=== PATIENT | male | born 1995 | race American Indian/Alaskan Native ===

== ENCOUNTER 2018-03-08 18:03 | Emergency (ER) | payer SELFPAY ==
[2018-03-08 18:16] VITALS: BP 148/77
[2018-03-08] MEDS ORDERED: NACL 0.9% 1000 ML 1,000 ML IV ONE (18:17)
[2018-03-08] MEDS ORDERED: ZOFRAN IV ONE (18:17)
[2018-03-08] MEDS ORDERED: MORPHINE IV ONE (18:17)
--- NOTE | 2018-03-08 18:30 | Emergency Department Report ---
ED General Adult HPI - General Chief complaint: Fall Stated complaint: UNRESPONSIVE Time Seen by Provider: 03/08/18 18:10 Source: patient, family Mode of arrival: Stretcher Limitations: Altered Mental Status - History of Present Illness Initial comments: Patient presents to the emergency department via private vehicle for fall. The patient was on the ladder changing a light bulb when he fell off the ladder. Per the patient's guest he fell approximately 10-12 feet. The patient fell onto a carpeted floor. Patient did have loss of consciousness for approximately 3-5 minutes per the guest. Abdomen the patient woke up she drove the patient hospital for which took approximately 30 minutes. Patient complains of a headache, neck pain, left-sided chest wall pain, abdominal pain, and left forearm pain. -: Sudden Location: head, chest, abdomen, upper extremity Radiation: non-radiation Severity scale (0 -10): 9 Quality: sharp Consistency: constant Improves with: none Worsens with: movement Associated Symptoms: denies other symptoms Treatments Prior to Arrival: none - Related Data Previous Rx's Medication Instructions Recorded Last Taken Type Acetaminophen/Codeine [Tylenol 1 tab PO Q6H PRN #20 tab 03/08/18 Unknown Rx /Codeine # 3 tab] Ibuprofen [Motrin] 800 mg PO Q8HR PRN #30 tablet 03/08/18 Unknown Rx Allergies Allergy/AdvReac Type Severity Reaction Status Date / Time No Known Allergies Allergy Unverified 03/08/18 18:09 ED Review of Systems ROS: Stated complaint: UNRESPONSIVE Other details as noted in HPI Constitutional: denies: chills, fever Eyes: denies: eye pain, eye discharge, vision change ENT: denies: ear pain, throat pain Respiratory: denies: cough, shortness of breath, wheezing Cardiovascular: chest pain. denies: palpitations Endocrine: no symptoms reported Gastrointestinal: abdominal pain. denies: nausea, diarrhea Genitourinary: denies: urgency, dysuria Musculoskeletal: denies: back pain, joint swelling, arthralgia Skin: denies: rash, lesions Neurological: denies: headache, weakness, paresthesias Psychiatric: denies: anxiety, depression Hematological/Lymphatic: denies: easy bleeding, easy bruising ED Past Medical Hx - Past Medical History Previous Medical History?: No - Surgical History Past Surgical History?: Yes Additional Surgical History: left achillies surgery - Social History Smoking Status: Never Smoker Substance Use Type: None - Medications Home Medications: Home Medications Medication Instructions Recorded Confirmed Last Taken Type Acetaminophen/Codeine [Tylenol 1 tab PO Q6H PRN #20 tab 03/08/18 Unknown Rx /Codeine # 3 tab] Ibuprofen [Motrin] 800 mg PO Q8HR PRN #30 tablet 03/08/18 Unknown Rx ED Physical Exam - General Limitations: Altered Mental Status General appearance: alert, in no apparent distress - Head Head exam: Present: normocephalic, other (bruising to forehead) - Eye Eye exam: Present: normal appearance, PERRL, EOMI - ENT ENT exam: Present: mucous membranes moist - Neck Neck exam: Present: other (tender to palpation of midline C-spine) - Respiratory Respiratory exam: Present: normal lung sounds bilaterally, chest wall tenderness (TTP left lateral chest wall). Absent: respiratory distress, wheezes, rales - Cardiovascular Cardiovascular Exam: Present: regular rate, normal rhythm. Absent: systolic murmur, diastolic murmur, rubs, gallop - GI/Abdominal GI/Abdominal exam: Present: soft, tenderness (tenderness to palpation diffusely throughout the abdomen), normal bowel sounds. Absent: distended - Rectal Rectal exam: Present: deferred - Extremities Exam Extremities exam: Present: other (tenderness to palpation of the humeral head left forearm as well as the left radius proximally) - Back Exam Back exam: Present: normal inspection - Neurological Exam Neurological exam: Present: alert, oriented X3, CN II-XII intact. Absent: motor sensory deficit - Psychiatric Psychiatric exam: Present: normal affect, normal mood - Skin Skin exam: Present: warm, dry, intact, normal color. Absent: rash ED Course Vital Signs 03/08/18 18:10 Temperature 98.0 F Pulse Rate 85 Respiratory 16 Rate Blood Pressure 148/77 O2 Sat by Pulse 99 Oximetry ED Medical Decision Making - Lab Data Result diagrams: 03/08/18 19:05 03/08/18 19:05 - Radiology Data Radiology results: report reviewed Referring Physician: LARON TROY Patient Name: ANTWAN GERARD Date of : 1995 Sex: Male Report Date: 2018-03-08 Report Status: Finalized [facility] [address] [place] [address] XRay Report Signed Patient: ANTWAN GERARD MR#: [id number] : 1995 Acct:[id number] Age/Sex: 22 / M ADM Date: 03/08/18 Loc: ED Attending Dr: Ordering Physician: LARON TROY MD Date of Service: 03/08/18 Procedure(s): XR humerus 2+V LT Accession Number(s): [id number] cc: LARON TROY MD Fluoro Time In Minutes: FINAL REPORT EXAM: XR HUMERUS 2+V LT HISTORY: pain... fell off ladder TECHNIQUE: Frontal and oblique views left humerus Comparison: X-ray left forearm also performed today FINDINGS: There is no evidence of fracture or subluxation. The soft tissues are unremarkable. IMPRESSION: 1. No evidence of fracture or subluxation. Transcribed By: ED Dictated By: DALLAS MILLER MD Electronically Authenticated By: DALLAS MILLER MD Signed Date/Time: 03/08/181919 DD/ 18 TD/TT: 03/08/181918 Referring Physician: LARON TROY Patient Name: ANTWAN GERARD Date of : 1995 Sex: Male Report Date: 2018-03-08 Report Status: Finalized [address] [address] XR ay Report Signed Patient: ANTWAN GERARD MR#: [id number] : 1995 Acct:[id number] Age/Sex: 22 / M ADM Date: 03/08/18 Loc: ED Attending Dr: Ordering Physician: LARON TROY MD Date of Service: 03/08/18 Procedure(s): XR forearm LT Accession Number(s): [id number] cc: LARON TROY MD Fluoro Time In Minutes: FINAL REPORT EXAM: XR FOREARM LT HISTORY: pain... fell off ladder TECHNIQUE: Frontal and lateral views left forearm Comparison: X-ray left humerus also performed today FINDINGS: There is no evidence of fracture or subluxation. The soft tissues are unremarkable. IMPRESSION: 1. No evidence of fracture or subluxation. Transcribed By: ED Dictated By: DALLAS MILLER MD [facility] nically Authenticated By: DALLAS MILLER MD Signed Date/Time: 03/08/181913 DD/ 11 TD/TT: 03/08/181911 [address] [address] Cat Scan Report Signed Patient: ANTWAN GERARD MR#: [id number] : 1995 Acct:[id number] Age/Sex: 22 / M ADM Date: 03/08/18 Loc: ED Attending Dr: Ordering Physician: LARON TROY MD Date of Service: 03/08/18 Procedure(s): CT abdomen pelvis w con Accession Number(s): [id number] cc: LARON TROY MD FINAL REPORT PROCEDURE: CT ABDOMEN PELVIS W CON TECHNIQUE: Computerized axial tomography of the abdomen and pelvis was performed after the IV injection of iodinated nonionic contrast. HISTORY: abdominal pain COMPARISON: No prior studies are available for comparison. FINDINGS: Liver, spleen, and adrenal glands are within normal limits. Bilateral kidneys demonstrate uniform enhancement without hydronephrosis. Urinary bladder is well distended with normal outlines. Aorta is of normal caliber. There is no free air in the peritoneal cavity. Minimal free fluid is noted in the pelvic cavity. There is no free air. Gallbladder is unremarkable. Small bowel loops are within normal limits. Appendix is normal. Vertebral height is normal. IMPRESSION: No acute intra-abdominal or pelvic pathology. Transcribed By: [facility] Dictated By: JENNIFER NOEL Electronically Authenticated By: JENNIFER NOEL Signed Date/Time: 03/08/182126 DD/ 25 TD/TT: 03/08/182125 [address] [address] Cat Scan Report Signed Patient: ANTWAN GERARD MR#: [id number] : 1995 Acct:[id number] Age/Sex: 22 / M ADM Date: 03/08/18 Loc: ED Attending Dr: Ordering Physician: LARON TROY MD Date of Service: 03/08/18 Procedure(s): CT cervical spine wo con Accession Number(s): [id number] cc: LARON TROY MD FINAL REPORT PROCEDURE: CT CERVICAL SPINE WO CON TECHNIQUE: Computerized tomography of the cervical spine was performed from the skull base to T1 without contrast material. HISTORY: c spine ttp COMPARISON: No prior studies are available for comparison. FINDINGS: There is straightening of the cervical spine C1-2: No significant abnormality. C2-3: No significant abnormality. C3-4: No significant abnormality. C4-5: No significant abnormality. C5-6: No significant abnormality. C6-7: No significant abnormality. C7-T1: No significant abnormality. Other: No acute fracture. IMPRESSION: Straightening of the cervical spine is most likely secondary to spasm or positioning. Otherwise unremarkable study. Transcribed By: [facility] Dictated By: JENNIFER NOEL Electronically Authenticated By: JENNIFER NOEL Signed Date/Time: 03/08/182134 DD/ 32 TD/TT: 03/08/182132 [address] [address] Cat Scan Report Signed Patient: ANTWAN GERARD MR#: [id number] : 1995 Acct:[id number] Age/Sex: 22 / M ADM Date: 03/08/18 Loc: ED Attending Dr: Ordering Physician: LARON TROY MD Date of Service: 03/08/18 Procedure(s): CT head/brain wo con Accession Number(s): [id number] cc: LARON TROY MD FINAL REPORT PROCEDURE: CT HEAD/BRAIN WO CON TECHNIQUE: Computerized tomography of the head was performed without contrast material. HISTORY: LOC COMPARISON: No prior studies are available for comparison. FINDINGS: Skull and scalp: Normal. Paranasal sinuses: Normal. Ventricles and subarachnoid spaces: Normal. Cerebrum: No evidence of hemorrhage, acute infarction or mass . Cerebellum and brainstem: No evidence of hemorrhage, acute infarction or mass. Vasculature: Normal. Comments: None. IMPRESSION: Normal Examination Transcribed By: [facility] Dictated By: JENNIFER NOEL Electronically Authenticated By: JENNIFER NOEL Signed Date/Time: 03/08/182100 DD/ 58 TD/TT: 03/08/182058 [address] [place] [address] Cat Scan Report Signed Patient: ANTWAN GERARD MR#: [id number] : 1995 Acct:[id number] Age/Sex: 22 / M ADM Date: 03/08/18 Loc: ED Attending Dr: Ordering Physician: LARON TROY MD Date of Service: 03/08/18 Procedure(s): CT chest w con Accession Number(s): [id number] cc: LARON TROY MD FINAL REPORT PROCEDURE: CT CHEST W CON TECHNIQUE: Computerized axial tomography of the chest was performed during the IV injection of iodinated nonionic contrast. HISTORY: chest wall ttp s/p trauma COMPARISON: No prior studies are available for comparison. TECHNICAL QUALITY: Satisfactory. FINDINGS: Heart and pericardium: Normal. Thoracic aorta: Normal. Pulmonary vasculature: Normal. Lymph nodes: No enlarged thoracic lymph nodes. Lungs: Normal. Pleural space: No effusion, thickening, or pneumothorax. Musculoskeletal structures: No significant abnormality. Upper abdominal structures: No significant abnormality. IMPRESSION: Normal examination Transcribed By: [facility] Dictated By: JENNIFER NOEL Electronically Authenticated By: JENNIFER NOEL Signed Date/Time: 03/08/182157 DD/ 56 TD/TT: 03/08/182156 Critical care attestation.: If time is entered above; I have spent that time in minutes in the direct care of this critically ill patient, excluding procedure time. ED Disposition Clinical Impression: Concussion, Neck strain, Arm pain, left, Chest wall pain, Trauma, Fall Disposition: TO HOME OR SELFCARE Is pt being admited?: No Does the pt Need Aspirin: No Condition: Stable Instructions: Concussion (ED), Cervical Spine Strain (ED), Thoracic Pain (ED), Fall Prevention (ED) Additional Instructions: return if worse Prescriptions: Acetaminophen/Codeine [Tylenol /Codeine # 3 tab] 1 tab PO Q6H PRN #20 tab PRN Reason: pain Ibuprofen [Motrin] 800 mg PO Q8HR PRN #30 tablet PRN Reason: pain Referrals: KVNG SORIA DO [Staff Physician] - 3-5 Days [facility] [Provider Group] - 3-5 Days [facility] [Provider Group] - 3-5 Days [facility] [Outside] - 3-5 Days Time of Disposition: 22:18
--- NOTE | 2018-03-08 19:14 | XRay Report ---
FINAL REPORT EXAM: XR FOREARM LT HISTORY: pain... fell off ladder TECHNIQUE: Frontal and lateral views left forearm Comparison: X-ray left humerus also performed today FINDINGS: There is no evidence of fracture or subluxation. The soft tissues are unremarkable. IMPRESSION: 1. No evidence of fracture or subluxation.
--- NOTE | 2018-03-08 19:20 | XRay Report ---
FINAL REPORT EXAM: XR HUMERUS 2+V LT HISTORY: pain... fell off ladder TECHNIQUE: Frontal and oblique views left humerus Comparison: X-ray left forearm also performed today FINDINGS: There is no evidence of fracture or subluxation. The soft tissues are unremarkable. IMPRESSION: 1. No evidence of fracture or subluxation.
[2018-03-08 19:24] LABS: Basophils % (Auto) 0.4 % (0.0-1.8); Eosinophils # (Auto) 0.1 K/mm3 (0.0-0.4); Eosinophils % (Auto) 1.8 % (0.0-4.3); Hematocrit 41.3 % (35.5-45.6); Hemoglobin 13.6 gm/dl (11.8-15.2); Lymphocytes # (Auto) 2.1 K/mm3 (1.2-5.4); Lymphocytes % (Auto) 40.9 % (13.4-35.0); Mean Corpuscular HGB Conc 33 % (32-34); Monocytes # (Auto) 0.6 K/mm3 (0.0-0.8); Monocytes % (Auto) 11.3 % (0.0-7.3); Platelet Count 221 K/mm3 (140-440); Red Cell Distribution Width 14.1 % (13.2-15.2)
[2018-03-08 19:33] LABS: Mean Corpuscular Volume 68 fl (84-94)
[2018-03-08 19:35] LABS: INR 0.93 (0.87-1.13)
[2018-03-08 19:36] LABS: Partial Thromboplastin Time 34.2 Sec. (24.2-36.6)
[2018-03-08 19:54] LABS: Alanine Aminotransferase 44 units/L (7-56); Albumin 4.9 g/dL (3.9-5); BUN/Creatinine Ratio 16; Blood Urea Nitrogen 14 mg/dL (9-20); Calcium 9.8 mg/dL (8.4-10.2); Hemolysis Index 4
--- NOTE | 2018-03-08 21:01 | Cat Scan Report ---
FINAL REPORT PROCEDURE: CT HEAD/BRAIN WO CON TECHNIQUE: Computerized tomography of the head was performed without contrast material. HISTORY: LOC COMPARISON: No prior studies are available for comparison. FINDINGS: Skull and scalp: Normal. Paranasal sinuses: Normal. Ventricles and subarachnoid spaces: Normal. Cerebrum: No evidence of hemorrhage, acute infarction or mass . Cerebellum and brainstem: No evidence of hemorrhage, acute infarction or mass. Vasculature: Normal. Comments: None. IMPRESSION: Normal Examination
--- NOTE | 2018-03-08 21:27 | Cat Scan Report ---
FINAL REPORT PROCEDURE: CT ABDOMEN PELVIS W CON TECHNIQUE: Computerized axial tomography of the abdomen and pelvis was performed after the IV inject ion of iodinated nonionic contrast. HISTORY: abdominal pain COMPARISON: No prior studies are available for comparison. FINDINGS: Liver, spleen, and adrenal glands are within normal limits. Bilateral kidneys demonstrate uniform enh ancement without hydronephrosis. Urinary bladder is well distended with normal outlines. Aorta is of normal caliber. There is no free air in the peritoneal cavity. Minimal free fluid is noted in the pel valeriy cavity. There is no free air. Gallbladder is unremarkable. Small bowel loops are within normal li mits. Appendix is normal. Vertebral height is normal. IMPRESSION: No acute intra-abdominal or pelvic pathology.
--- NOTE | 2018-03-08 21:35 | Cat Scan Report ---
FINAL REPORT PROCEDURE: CT CERVICAL SPINE WO CON TECHNIQUE: Computerized tomography of the cervical spine was performed from the skull base to T1 wit hout contrast material. HISTORY: c spine ttp COMPARISON: No prior studies are available for comparison. FINDINGS: There is straightening of the cervical spine C1-2: No significant abnormality. C2-3: No significant abnormality. C3-4: No significant abnormality. C4-5: No significant abnormality. C5-6: No significant abnormality. C6-7: No significant abnormality. C7-T1: No significant abnormality. Other: No acute fracture. IMPRESSION: Straightening of the cervical spine is most likely secondary to spasm or positioning. Otherwise unremarkable study.
--- NOTE | 2018-03-08 21:58 | Cat Scan Report ---
FINAL REPORT PROCEDURE: CT CHEST W CON TECHNIQUE: Computerized axial tomography of the chest was performed during the IV injection of iodin ated nonionic contrast. HISTORY: chest wall ttp s/p trauma COMPARISON: No prior studies are available for comparison. TECHNICAL QUALITY: Satisfactory. FINDINGS: Heart and pericardium: Normal. Thoracic aorta: Normal. Pulmonary vasculature: Normal. Lymph nodes: No enlarged thoracic lymph nodes. Lungs: Normal. Pleural space: No effusion, thickening, or pneumothorax. Musculoskeletal structures: No significant abnormality. Upper abdominal structures: No significant abnormality. IMPRESSION: Normal examination
== END 2018-03-08 22:48 | disposition home or self-care (01) ==
LOC: ED 18:03
DX: S16.1XXA Strain of muscle, fascia and tendon at neck level, initial encounter (principal); S06.0X1A Concussion with loss of consciousness of 30 minutes or less, initial encounter; R07.89 Other chest pain; M79.602 Pain in left arm; R10.9 Unspecified abdominal pain; Z98.890 Other specified postprocedural states; W11.XXXA Fall on and from ladder, initial encounter; Y93.89 Activity, other specified; Y92.89 Other specified places as the place of occurrence of the external cause; Y99.8 Other external cause status
CPT/HCPCS: 36415; 70450; 71260; 72125; 73060; 73090; 74177; 80053; 85025; 85610; 85730; 96361; 96374; 96375; 99284; J2270; J2405; J7030; Q9967